=== PATIENT | male | born 1945 | race Caucasian/White ===

== ENCOUNTER 2017-11-17 05:40 | Day surgery (SDC) | payer OTHER ==
[~2017-11-17] VITALS: Ht 190.5 cm; Wt 85.1 kg
[2017-11-17] MEDS ORDERED: LIDOCAINE 1%, 2ML ONE (06:54)
[2017-11-17 07:12] VITALS: BP 113/65
[2017-11-17 07:15] LABS: BASOPHILS # (AUTO) 0.02 x10^3/uL (0-0.1); BASOPHILS % (AUTO) 1 % (0-1); EOSINOPHILS # (AUTO) 0.07 x10^3/uL (0-0.4); EOSINOPHILS % (AUTO) 2 % (1-7); LYMPHOCYTES # (AUTO) 0.72 x10^3/uL (1-3.4); LYMPHOCYTES % (AUTO) 22 % (22-44); MD NO; MEAN CORPUSCULAR HEMOGLOBIN 29.8 pg (27.5-34.5); MEAN CORPUSCULAR HGB CONC 33.4 g/dL (33.2-36.2); MEAN CORPUSCULAR VOLUME 89.2 fL (81-97); MEAN PLATELET VOLUME 9.7 fL (7.4-10.4); MONOCYTES # (AUTO) 0.48 x10^3/uL (0.2-0.8); MONOCYTES % (AUTO) 15 % (2-9); NEUTROPHILS # (AUTO) 1.92 x10^3/uL (1.8-6.8); NEUTROPHILS % (AUTO) 60 % (42-75); PLATELET COUNT 127 x10^3/uL (130-400); RED BLOOD COUNT 3.72 x10^6/uL (4.38-5.82); RED CELL DISTRIBUTION WIDTH 15.5 % (9.4-14.8)
[2017-11-17] MEDS ORDERED: KETAMINE 10 MG/ML, 20ML ONE (07:25)
[2017-11-17 07:26] LABS: ALANINE AMINOTRANSFERASE 14 U/L (12-78); ALBUMIN 3.4 g/dL (3.4-5.0); ANION GAP 7 mmol/L (5-15); CALCIUM 8.9 mg/dL (8.5-10.1); CHLORIDE 97 mmol/L (98-107); CREATININE 5.54 mg/dL (0.7-1.3)
[2017-11-17] MEDS ORDERED: SODIUM CHLORIDE 0.9% 1,000 ML IV SCH (07:26)
[2017-11-17] MEDS ORDERED: PROPOFOL 10 MG/ML, 20ML ONE (07:27)
[2017-11-17 07:29] LABS: ALKALINE PHOSPHATASE 102 U/L (45-117); BILIRUBIN,TOTAL 0.7 mg/dL (0.2-1.0); TOTAL PROTEIN 7.1 g/dL (6.4-8.2)
[2017-11-17] MEDS ORDERED: LIDOCAINE 1%, 2ML SQ PRN (07:30)
[2017-11-17] MEDS ORDERED: FENTANYL PF 100 MCG/2ML IV PRN (07:30)
[2017-11-17] MEDS ORDERED: ONDANSETRON 2MG/ML, 2ML IVPush PRN (07:30)
[2017-11-17] MEDS ORDERED: ACETAMINOPHEN 325 MG TABLET PO PRN (07:30)
[2017-11-17] MEDS ORDERED: OXYcodone 5 MG/5 ML ORAL.SOL UDC PO PRN (07:30)
[2017-11-17] MEDS ORDERED: HYDROcodone/APAP 7.5-325MG/15ML UDC PO PRN (07:30)
[2017-11-17] MEDS ORDERED: INSU100I13 SQ (07:32)
[2017-11-17] MEDS ORDERED: DOCU240C53 PO (07:32)
[2017-11-17] MEDS ORDERED: METO25TA35 PO (07:32)
[2017-11-17] MEDS ORDERED: SEVE400T PO (07:32)
[2017-11-17] MEDS ORDERED: GABA300C10 PO (07:32)
[2017-11-17] MEDS ORDERED: CHOL500050 PO (07:32)
[2017-11-17] MEDS ORDERED: INSU500I SQ (07:32)
[2017-11-17] MEDS ORDERED: ASPI-496 PO (07:32)
[2017-11-17] MEDS ORDERED: ATOR20TA PO (07:32)
[2017-11-17] MEDS ORDERED: CEFAZOLIN 1,000 MG ONE (07:50)
[2017-11-17 08:00] LABS: INTERNATIONAL NORMALIZED RATIO 1.09 (0.93-1.1); PROTHROMBIN TIME 11.2 Seconds (9.6-11.5)
[2017-11-17] MEDS ORDERED: ALBUTEROL/IPRATROPIUM 2.5MG/0.5MG, 3 ML ONE (08:53)
[2017-11-17] MEDS ORDERED: ALBUTEROL/IPRATROPIUM 2.5MG/0.5MG, 3 ML NPPB PRN (09:00)
== END 2017-11-17 10:00 ==
LOC: OUT 05:40
PROVIDERS: ATTEND Internal Medicine
DX: K86.2 Cyst of pancreas (principal); J44.9 Chronic obstructive pulmonary disease, unspecified; E11.9 Type 2 diabetes mellitus without complications; I10 Essential (primary) hypertension; E78.5 Hyperlipidemia, unspecified; Z86.010 Personal history of colon polyps; Z79.4 Long term (current) use of insulin; Z98.890 Other specified postprocedural states; Z72.89 Other problems related to lifestyle
CPT/HCPCS: 36415; 43242; 80053; 82962; 85025; 85610; 85730; 93005; 94640; J0690; J2704; J3490; J7030; J7620